=== PATIENT | male | born 1985 | race Caucasian/White ===

== ENCOUNTER 2018-09-04 07:32 | Emergency (ER) | payer MEDICAID ==
[~2018-09-04] VITALS: Ht 162.6 cm; Wt 77.1 kg
[2018-09-04 07:42] VITALS: Ht 162.6 cm; Wt 77.1 kg
[2018-09-04 09:10] LABS: microscopic required? YES; urine erythrocyte TRACE (NEGATIVE)
[2018-09-04 12:04] VITALS: BP 126/68
== END 2018-09-04 12:04 | disposition home or self-care (01) ==
LOC: ED 07:32
PROVIDERS: Emergency Medicine
DX: M54.5 Low back pain (principal); K42.9 Umbilical hernia without obstruction or gangrene
CPT/HCPCS: J1100; J1885; J3010

== ENCOUNTER 2019-11-21 22:14 | Emergency (ER) | payer MEDICAID ==
[~2019-11-21] VITALS: Ht 162.6 cm; Wt 84.4 kg
[2019-11-21 22:22] VITALS: Ht 162.6 cm; Wt 84.4 kg
[2019-11-21 23:06] LABS: BASOPHIL % 0.5 % (0-2); PLATELET COUNT 334 x10^3mcL (130-400); RED CELL DISTRIBUTION WIDTH 13.3 % (11.5-14.5)
[2019-11-21 23:07] LABS: CALCIUM 9.3 mg/dL (8.5-10.1); CARBON DIOXIDE 27.7 mmol/L (21-32); CHLORIDE SERUM 101 mmol/L (98-107); CREATININE SERUM 0.7 mg/dL (0.7-1.3); GFR1 > 60 mL/min; GLUCOSE SERUM 105 mg/dL (74-106); POTASSIUM SERUM 3.4 mmol/L (3.5-5.1); SODIUM SERUM 140 mmol/L (136-145)
[2019-11-21 23:11] LABS: ALKALINE PHOSPHATASE 159 U/L (46-116); ALT/SGPT 49 U/L (16-63); AST/SGOT 22 U/L (15-37); BILIRUBIN TOTAL 0.37 mg/dL (0.20-1.00); LIPASE 238 IU/L (73-393); TOTAL PROTEIN, SERUM 8.1 g/dL (6.4-8.2)
[2019-11-22 03:17] LABS: UA SPECIFIC GRAVITY 1.025 (1.005-1.035); microscopic required? YES; urine erythrocyte 2+ (NEGATIVE)
[2019-11-22 03:56] VITALS: BP 116/63
== END 2019-11-22 03:56 | disposition home or self-care (01) ==
LOC: ED 22:14
PROVIDERS: Emergency Medicine
DX: R10.31 Right lower quadrant pain (principal); D72.829 Elevated white blood cell count, unspecified
CPT/HCPCS: J1885; J7030

== ENCOUNTER 2019-11-24 17:15 | Emergency (ER) | payer MEDICAID ==
[~2019-11-24] VITALS: Ht 162.6 cm; Wt 83.9 kg
[2019-11-24 17:42] VITALS: Ht 162.6 cm; Wt 83.9 kg
[2019-11-24 20:34] LABS: BASOPHIL % 1.5 % (0-2); PLATELET COUNT 330 x10^3mcL (130-400); RED CELL DISTRIBUTION WIDTH 13.2 % (11.5-14.5)
[2019-11-24 21:12] VITALS: BP 118/78
== END 2019-11-24 21:12 | disposition home or self-care (01) ==
LOC: ED 17:15
PROVIDERS: Emergency Medicine
DX: R10.31 Right lower quadrant pain (principal)
CPT/HCPCS: 36415

== ENCOUNTER 2020-06-28 21:05 | Emergency (ER) | payer MEDICAID ==
[~2020-06-28] VITALS: Ht 165.1 cm; Wt 81.6 kg
[2020-06-28 21:12] VITALS: BP 146/86; Ht 165.1 cm; Wt 81.6 kg
== END 2020-06-28 22:46 | disposition home or self-care (01) ==
LOC: ED 21:05
DX: S71.112A Laceration without foreign body, left thigh, initial encounter (principal); W45.8XXA Other foreign body or object entering through skin, initial encounter; Y93.89 Activity, other specified; Y92.89 Other specified places as the place of occurrence of the external cause; Y99.8 Other external cause status
CPT/HCPCS: 90715

== ENCOUNTER 2020-07-06 20:55 | Emergency (ER) | payer MEDICAID ==
[~2020-07-06] VITALS: Ht 165.1 cm; Wt 80.7 kg
[2020-07-06 21:09] VITALS: Ht 165.1 cm; Wt 80.7 kg
[2020-07-06 21:21] VITALS: BP 132/92
== END 2020-07-06 21:21 | disposition home or self-care (01) ==
LOC: ED 20:55
DX: S81.012D Laceration without foreign body, left knee, subsequent encounter (principal); X58.XXXD Exposure to other specified factors, subsequent encounter